=== PATIENT | female | born 1975 | race Asian ===

== ENCOUNTER 2016-09-06 21:06 | Emergency (ER) | payer OTHER ==
[~2016-09-06] VITALS: Ht 160 cm; Wt 63.5 kg
[2016-09-06 21:16] VITALS: BP_SYST 109; BP_SYST 150; BP_DIAS 75; BP_DIAS 82
--- NOTE | 2016-09-06 21:33 | NUR ---
PT TAKEN TO [facility] FROM [facility]
--- NOTE | 2016-09-06 21:42 | NUR ---
PT TAKEN TO OF
--- NOTE | 2016-09-06 21:45 | NUR ---
41Y F BIB SELF C/O LEFT FOOT PAIN AND SWELLING, WITH REDNESS FOR 10 DAYS, S/P WEARING HIGH HEELS , SEEN IN ER [facility] 10 DAYS AGO WITH PRESCRIPTION BACTRIM AND KEFLEX AND STILL WITH PAIN, SWELLING AND REDNESS. NO TRAUMA NOR INJURY
--- NOTE | 2016-09-06 22:05 | NUR ---
Dr. Beltran evaluating patient
--- NOTE | 2016-09-06 22:29 | NUR ---
Patient discharged with v/s stable. Written and verbal after care instructions given and explained. Patient alert, oriented and verbalized understanding of instructions. Ambulatory with steady gait. All questions addressed prior to discharge. ID band removed. Patient advised to follow up with PMD. Rx of ULTRAM 50MG given. Patient educated on indication of medication including possible reaction and side effects. Opportunity to ask questions provided and answered.
[2016-09-06 22:30] VITALS: BP 109/75
== END 2016-09-06 22:29 | disposition home or self-care (01) ==
LOC: MED 21:06
CPT/HCPCS: 73630; 99284; Q0092

== ENCOUNTER 2017-05-18 08:53 | Emergency (ER) | payer OTHER ==
[~2017-05-18] VITALS: Ht 162.6 cm; Wt 63.5 kg
[2017-05-18 09:05] VITALS: BP 102/60
--- NOTE | 2017-05-18 09:12 | NUR ---
GRADUAL ONSET LEFT ANTERIOR CHEST WALL PAIN X 3DAYS. DENIES SOB. ALSO REPORTS CYSTS UNDER ARM/BREAST. PCP TOLD HIM TO COME TO ER. DENIES N/V/D; SKIN IS PINK/WARM/DRY; AAOX4 WITH EVEN AND STEADY GAIT; LUNGS CLEAR BL; HR EVEN AND REGULAR; PT DENIES ANY FEVER, SOB, OR COUGH AT THIS TIME; PATIENT STATES PAIN OF 7/10 AT THIS TIME; VSS; PATIENT POSITIONED FOR COMFORT; HOB ELEVATED; BEDRAILS UP X2; BED DOWN. ER MD MADE AWARE OF PT STATUS.
--- NOTE | 2017-05-18 09:20 | NUR ---
ASSISTED MD TO CHECK PT AT BEDSIDE.
[2017-05-18 09:41] VITALS: BP 106/51
--- NOTE | 2017-05-18 09:41 | NUR ---
Patient discharged with v/s stable. Written and verbal after care instructions given and explained. Patient verbalized understanding. Ambulatory with steady gait. All questions addressed prior to discharge. Advised to follow up with PMD.
== END 2017-05-18 09:41 | disposition home or self-care (01) ==
LOC: MED 08:53
DX: R07.89 Other chest pain (principal); E11.9 Type 2 diabetes mellitus without complications
CPT/HCPCS: 93005; 99283

== ENCOUNTER 2018-10-04 15:56 | Emergency (ER) | payer OTHER ==
[~2018-10-04] VITALS: Ht 160 cm; Wt 59.0 kg
[2018-10-04 16:34] VITALS: BP 109/45
--- NOTE | 2018-10-04 17:47 | NUR ---
Rich hcarlton in ED - 10/04/18 at 1747 by ERMIAS PT TO ER BED 11 WITH MOTHER
--- NOTE | 2018-10-04 17:47 | NUR ---
PT TO ER BED 11
--- NOTE | 2018-10-04 17:58 | NUR ---
C/O ANTERIOR CHEST WALL PAIN RADIATING TO RIBS UPON COUGHING X 1 WK DENIES NASAL / CHEST CONGESTION---DENIES NIGHT SWEATS OR RECENT WEIGHT LOSS FULL CLEAR SPEECH WITH NO ACCESSORY MUSCLE USE NOTED AT THIS TIME.
--- NOTE | 2018-10-04 18:05 | NUR ---
X-RAY AT BESIDE
[2018-10-04 18:59] VITALS: BP 109/45
--- NOTE | 2018-10-04 19:00 | NUR ---
Patient discharged with v/s stable. Written and verbal after care instructions given and explained. Patient alert, oriented and verbalized understanding of instructions. Ambulatory with steady gait. All questions addressed prior to discharge. ID band removed. Patient advised to follow up with PMD. Rx of PREDNISONE/ PROMETHAZINE given. Patient educated on indication of medication including possible reaction and side effects. Opportunity to ask questions provided and answered.
== END 2018-10-04 18:57 | disposition home or self-care (01) ==
LOC: MED 15:56
DX: J30.9 Allergic rhinitis, unspecified (principal); E11.9 Type 2 diabetes mellitus without complications
CPT/HCPCS: 71045; 99283; Q0092